=== PATIENT | male | born 1985 | race Caucasian/White ===

== ENCOUNTER → 2021-04-07 08:45 | Outpatient (CLI) | payer OTHER, SELFPAY ==
--- NOTE | 2021-04-07 | DI.RAD.S_ITS ---
PROCEDURE: [place] HIP INJECTION MR/CT LT INDICATIONS: pain in lt hip TECHNIQUE: The indications, alternatives, benefits, risks, and complications of the procedure were explained to the patient. Written informed consent was obtained and placed in the chart. The hip was examined fluoroscopically with the legs fixed in slight internal rotation, and a site for needle placement chosen for entry into the hip joint from an anterior approach. Care was taken to locate the common femoral artery and vein beforehand. The skin was prepped and draped in a sterile fashion, and 1% Lidocaine infiltrated from skin down to joint capsule. A spinal needle was inserted into the joint, and a small amount of iodinated contrast media injected to confirm intra-articular placement of the needle tip. This was followed by approximately 10 mL dilute solution of a gadolinium containing MR contrast agent. The needle was removed and a dressing was applied. The patient was given postprocedural instructions and sent to the MR suite for imaging. COMPARISON: [facility], MR, MR HIP LT W CON, 04/07/2021, 9:57. FINDINGS: A single fluoroscopic spot image demonstrates intra-articular location of injected iodinated contrast. IMPRESSION: Successful fluoroscopically guided administration of dilute Gadolinium solution into the hip joint for MR arthrogram. Dictated by: Aden Roman M.D. on 04/07/2021 at 13:46 Approved by: Aden Roman M.D. on 04/07/2021 at 13:57
--- NOTE | 2021-04-07 | DI.MRI.S_ITS ---
PROCEDURE: MR HIP LT W CON INDICATIONS: PAIN IN HIP TECHNIQUE: After the administration of 10 mL of dilute intra-articular Gadolinium contrast, coronal T1 spin echo and STIR of the bony pelvis; coronal and oblique axial T1 spin echo with fat saturation, axial T2 fast spin echo with fat saturation, sagittal T1 spin echo with and without fat saturation of the involved hip. COMPARISON: [facility], CR, XR PELVIS WITH LATERAL HIP LEFT, 03/14/2021, 11:31. [facility], RF, [place] HIP INJECTION MR/CT LT, 04/07/2021, 9:27. FINDINGS: Image quality: Excellent. Bones and joints: Bone marrow of the pelvic ring and proximal femurs show normal signal throughout. No intraosseous lesions or fractures. No avascular necrosis of the femoral heads. The visualized lower lumbar spine appears normally aligned. Tendons and ligaments: There is mild tendinosis of the distal gluteus medius and minimus tendons bilaterally with trace trochanteric bursal effusions. The proximal iliotibial band appears intact. The iliopsoas tendon appears intact, without adjacent bursal fluid collections. The origin of the hamstring tendon demonstrates mild tendinosis. The direct and indirect heads of the rectus femoris muscle origin appear intact. Labrum and cartilage: There is mild degeneration of the anterosuperior labrum without a discrete tear or uptake of intra-articular contrast material. Cartilage surface of the femoral head appears of normal thickness. There is normal morphology of the femoral head and the acetabulum. Soft tissues: Visualized muscles demonstrate normal bulk and internal signal. Quadratus femoris muscle demonstrates no internal edema to suggest ischiofemoral impingement. The proximal sciatic neurovascular bundle appears intact. The included portions of the pelvis demonstrate no acute abnormality. IMPRESSION: 1. Mild anterosuperior labral degeneration without a discrete tear. 2. No acute trabecular bone injury. No focal cartilage loss in the left hip. 3. Mild tendinosis of the distal gluteus medius and minimus tendons bilaterally with trace trochanteric bursal effusions or bursitis. 4. Mild proximal hamstring tendinosis. Dictated by: Isacc Morton M.D. on 04/07/2021 at 10:56 Approved by: Isacc Morton M.D. on 04/07/2021 at 11:08
== END ==
PROVIDERS: PCP Student in an Organized Health Care Education/Training Program; Referring Provider Student in an Organized Health Care Education/Training Program; Visit Provider Student in an Organized Health Care Education/Training Program
DX: M25.559 Pain in unspecified hip (principal); M25.452 Effusion, left hip; M25.451 Effusion, right hip
CPT/HCPCS: 27093; 73722; 77002